=== PATIENT | male | born 1975 | race Caucasian/White ===

== ENCOUNTER → 2022-06-05 | Outpatient (CLI) | payer BC ==
--- NOTE | 2022-06-05 17:36 | Diagnostic Imaging Report ---
INDICATION: Neck pain. FINDINGS: Cervical stature is normal. The alignment is anatomic. The prevertebral space is normal. Disc spaces are mildly narrowed at the midcervical levels. No fracture. No bony destruction. IMPRESSION: Midcervical spondylosis and facet arthrosis but no fracture or acute-appearing abnormality. Dictated by: Dictated on workstation # [id number]
== END ==
LOC: RAD FS 16:41
PROVIDERS: ATTEND Nurse Practitioner Family
DX: M47.812 Spondylosis without myelopathy or radiculopathy, cervical region (principal)
CPT/HCPCS: 72040